=== PATIENT | male | born 1995 | race Two or more races ===

== ENCOUNTER 2025-02-25 07:11 | Outpatient (CLI) | payer MEDICAID ==
--- NOTE | 2025-02-25 13:39 | DVH ---
Procedure: NM PARATHYROID Exam Date: 02/25/2025 07:44 AM. Clinical History: HYPERCALCEMIA Comparison Study: US THYROID on DOS: 01/16/25, US NECK, SOFT TISSUES on DOS: 11/28/23 Nuclear Medicine Parathyroid Scan. Technique: Following the intravenous injection of 22 mCi of the Technetium 99m Sestamibi, images of the neck wer e obtained in multiple projections , immediately and after a two hour delay. Findings: There is the expected physiologic distribution of radiopharmaceutical. There is no abnormal focus of increased uptake to suggest a parathyroid adenoma in the neck. Impression: No scintigraphic evidence for parathyroid adenoma in the neck.
== END 2025-02-25 17:00 | disposition home or self-care (01) ==
LOC: XYW 07:11
DX: E83.52 Hypercalcemia (principal)
CPT/HCPCS: 78070; A9500